=== PATIENT | female | born 1965 | race Hispanic/Latino ===

== ENCOUNTER 2016-11-22 15:46 | Emergency (ER) | payer SELFPAY ==
[~2016-11-22 15:46] MED LIST: Iopamidol 370 76% 100 ML VIAL ONE
[2016-11-22] MEDS ORDERED: Sodium Chloride 0.9% 1,000 ML ONE ×2 (15:59→16:49)
[2016-11-22] MEDS ORDERED: Ondansetron HCl/PF 4 MG/2 ML Vial ONE ×2 (15:59→16:19)
[2016-11-22 16:11] LABS: #Basophils 0.1 thou/uL (0.0-0.2); #Eosinphils 0.3 thou/uL (0.0-0.7); #Lymphocytes 4.3 thou/uL (1.20-3.40); #Monocytes 0.5 thou/uL (0.11-0.59); #Neutrophils 4.5 thou/uL (1.40-6.50); %Eosinophils 2.6 % (0.0-10.0); %Lymphocytes 44.8 % (21.0-51.0); %Monocytes 4.8 % (0.0-10.0); %Neutrophils 46.7 % (42.0-75.0); Hemoglobin 11.5 g/dL (12.0-16.0); Mean Corpuscular HGB CONC 32.5 g/dL (32.0-36.0); Mean Corpuscular Hemoglobin 29.6 pg (27.0-31.0); Mean Platelet Volume 7.8 fL (7.4-10.4); Platelet Count 221 thou/uL (130-400); Red Blood Cell (RBC) Count 3.89 mill/uL (4.20-5.40); White Blood Cell (WBC) Count 9.7 thou/uL (4.8-10.8)
[2016-11-22 16:28] LABS: ALT (SGPT) 23 U/L (8-55); AST (SGOT) 22 U/L (5-34); Albumin 4.1 g/dL (3.5-5.0); Alkaline Phosphatase 83 U/L (40-150); Anion Gap 15 mmol/L (10-20); BUN (Urea Nitrogen) 19 mg/dL (9.8-20.1); Bilirubin, Total 0.2 mg/dL (0.2-1.2); CK (CPK) 145 U/L (29-168); Calc. Creatinine Clearance 0 mL/min (70-130); Calcium 8.9 mg/dL (7.8-10.44); Carbon Dioxide 21 mmol/L (22-29); Chloride 108 mmol/L (98-107); Estimated GFR-MDRD 85; Globulin 2.8 g/dL (2.4-3.5); Glucose 170 mg/dL (70-105); Lipase 18 U/L (8-78); Protein, Total 6.9 g/dL (6.0-8.3); Sodium 140 mmol/L (136-145)
[2016-11-22 16:32] LABS: CKMB 2.1 ng/mL (0-6.6); Troponin I Less than 0.010 ng/mL (< 0.028)
[2016-11-22] MEDS ORDERED: Lorazepam 2 MG/ML VIAL ONE (16:48)
--- NOTE | 2016-11-22 18:24 | RAD ---
SEMIUPRIGHT PORTABLE CHEST ONE VIEW: 11/22/16 HISTORY: 50-year-old female with left upper quadrant pain since this morning. Heart size is within normal limits considering the lordotic positioning of the patient. Mild vascula r congestion. No confluent pneumonia, overt edema or pleural effusion. Patient has large body habitu s. IMPRESSION: No acute intrathoracic disease. POS: [facility]
--- NOTE | 2016-11-22 18:39 | CT ---
ABDOMEN AND PELVIC CT SCAN WITH IV CONTRAST: 11/22/16 HISTORY: 50-year-old female with left upper quadrant pain status post appendectomy. The lung bases are clear. Old granuloma calcification in the right lower lobe. The liver and a an l gallbladder are demonstrated. The pancreas and spleen and adrenal glands are unremarkable. Bilater al nonobstructing renal calculi. There is prominent distention of the stomach with fluid or fluid. There is minimal dilatation of the proximal small bowel, in particular the jejunum with some minimal wall thickening, nonspecific but raising concern for the possibility of some type of gastroenteriti s. The uterus and adnexal regions are unremarkable. No abscess, adenopathy or abnormal fluid collect ion. IMPRESSION: Fairly marked fluid and/or food distention of the stomach with some dilatation of the proximal small bowel and minimal proximal small bowel wall thickening, nonspecific, but raising the possibility of some type of gastroenteritis. Nonobstructing bilateral renal calculi. There is a normal gallbladder present. Status post appendectomy. POS: [facility]
== END 2016-11-22 18:00 | disposition home or self-care (01) ==
LOC: NAV ERS 15:46
DX: R10.13 Epigastric pain (principal)
CPT/HCPCS: 71010; 74177; 80053; 82550; 82553; 83605; 83690; 84484; 85025; 93005; 96361; 96374; 96375; 96376; J2060; J2270; J2405; J7050

== ENCOUNTER 2017-05-22 02:29 | Emergency (ER) | payer SELFPAY ==
[2017-05-22 02:55] LABS: Bilirubin Negative (Negative); Blood, Urine Small (Negative); Clarity Clear (Clear); Glucose, Urine (Dipstick) Negative (Negative); Leukocyte Small (Negative); Nitrite Negative (Negative); Protein, Urine (Dipstick) Negative (Neg-Trace); Urobilinogen 0.2 mg/dL (0.2-1.0)
[2017-05-22 02:57] LABS: Bacteria/HPF 1+ HPF (None Seen)
[2017-05-22] MEDS ORDERED: Ketorolac Tromethamine 30 MG/ML VIAL ONE (02:59)
[2017-05-22] MEDS ORDERED: Ondansetron HCl/PF 4 MG/2 ML Vial ONE (03:00)
[2017-05-22] MEDS ORDERED: Promethazine HCl 25 MG/ML VIAL ONE (03:19)
[2017-05-22 03:36] LABS: CKMB 1.1 ng/mL (0-6.6); Eosinophils 4 % (0-10); Hemoglobin 12.4 g/dL (12.0-16.0); Lymphocytes 61 % (21-51); MDiff Complete? YES; Mean Corpuscular HGB CONC 33.5 g/dL (32.0-36.0); Mean Corpuscular Hemoglobin 30.2 pg (27.0-31.0); Mean Platelet Volume 7.7 fL (7.4-10.4); Monocytes 5 % (0-10); Neutrophil 29 % (42-75); PLT Morphology Comment Appears Adequate; Platelet Count 228 thou/uL (130-400); RBC Distribution Width 12.3 % (11.5-14.5); RBC Morphology Normal; Red Blood Cell (RBC) Count 4.11 mill/uL (4.20-5.40); Troponin I Less than 0.010 ng/mL (< 0.028); White Blood Cell (WBC) Count 7.8 thou/uL (4.8-10.8)
[2017-05-22 03:37] LABS: ALT (SGPT) 22 U/L (8-55); AST (SGOT) 17 U/L (5-34); Albumin 3.9 g/dL (3.5-5.0); Alkaline Phosphatase 72 U/L (40-150); Anion Gap 12 mmol/L (10-20); BUN (Urea Nitrogen) 27 mg/dL (9.8-20.1); Bilirubin, Total 0.2 mg/dL (0.2-1.2); Calc. Creatinine Clearance 0 mL/min (70-130); Carbon Dioxide 22 mmol/L (22-29); Chloride 110 mmol/L (98-107); Estimated GFR-MDRD Greater than 90; Globulin 2.7 g/dL (2.4-3.5); Glucose 116 mg/dL (70-105); Potassium 4.1 mmol/L (3.5-5.1); Protein, Total 6.6 g/dL (6.0-8.3); Sodium 140 mmol/L (136-145)
[2017-05-22] MEDS ORDERED: Fentanyl 100 MCG/2 ML VIAL ONE (04:22)
--- NOTE | 2017-05-22 09:43 | CT ---
PRELIMINARY REPORT/[facility]/EMERGENTY AFTER-HOURS PROCEDURE EXAM: CT Abdomen and Pelvis Without Intravenous Contrast CLINICAL HISTORY: 51 years old, female; Pain and signs and symptoms; Nausea; Abdominal pain; Flank; Left; Prior surgery ; Surgery date: 6+ months; Surgery type: Surgical history of appendectomy & cholecystectomy; Patient HX: 51 year old female presents with acute onset of pain in left flank that awoke her from sleep. She reports nausea, difficulty breathing due to the pain. She denies recent urinary symptoms. TECHNIQUE: Axial computed tomography images of the abdomen and pelvis without intravenous contrast. All CT scans at this facility use one or more dose reduction techniques, viz.: automated exposure control; ma/kV adjustment per patient size (including targeted exams where dose is matched to indication; i.e. head) ; or iterative reconstruction technique. Coronal and sagittal reformatted images were created and rev iewed. COMPARISON: No relevant prior studies available. FINDINGS: Lung bases: Unremarkable. No mass. No consolidation. ABDOMEN: Liver: Unremarkable. Gallbladder and bile ducts: Unremarkable. No calcified stones. No ductal dilation. Pancreas: Unremarkable. No ductal dilation. Spleen: Unremarkable. No splenomegaly. Adrenals: Unremarkable. No mass. Kidneys and ureters: Bilateral nephrolithiasis measuring up to 4 mm. Question minimal fullness to the renal pelves/ureters Faint left UVJ calculus on image 80 versus phlebolith Stomach and bowel: Colonic diverticulosis noted No obstruction. No mucosal thickening. Appendix: Prior appendectomy PELVIS: Bladder: Phlebolith adjacent to the urinary bladder Reproductive: Calcifications in the adnexa ABDOMEN and PELVIS: Intraperitoneal space: Unremarkable. No free air. No significant fluid collection. Bones/joints: No acute fracture. No dislocation. Soft tissues: Unremarkable. Vasculature: Unremarkable. No abdominal aortic aneurysm. Lymph nodes: Unremarkable. No enlarged lymph nodes. IMPRESSION: Bilateral renal calculi and minimal fullness to the renal collecting system/ureters. Questioned faint left UVJ calculus versus phlebolith Colonic diverticulosis without diverticulitis Thank you for allowing us to participate in the care of your patient. Dictated and Authenticated by: Geovanny Davies MD 05/22/2017 5:13 AM Central Time ([place] & [place]) FINAL REPORT CT ABDOMEN AND PELVIS WITHOUT CONTRAST: History: Left flank pain. Comparison: CT 11-22-16 FINDINGS: Findings and impression are concurrent with the preliminary report. Code QA. Multiple phleboliths in the pelvis. No definite ureteral calculi. No calculi within urinary bladder.
== END 2017-05-22 05:45 | disposition home or self-care (01) ==
LOC: NAV ERS 02:29
DX: N20.1 Calculus of ureter (principal); N39.0 Urinary tract infection, site not specified
CPT/HCPCS: 36415; 74176; 80053; 81003; 81015; 82553; 84484; 85025; 85379; 93005; 96365; 96375; J1885; J2405; J2550; J3010

== ENCOUNTER 2017-05-22 19:19 | Emergency (ER) | payer SELFPAY ==
[2017-05-22] MEDS ORDERED: Promethazine HCl 25 MG/ML VIAL ONE (19:51)
[2017-05-22] MEDS ORDERED: Sodium Chloride 0.9% 1,000 ML ONE ×2 (19:51→20:40)
[2017-05-22] MEDS ORDERED: Tamsulosin HCl 0.4 MG CAP ONE (19:51)
[2017-05-22] MEDS ORDERED: Ketorolac Tromethamine 30 MG/ML VIAL ONE (19:51)
[2017-05-22 20:05] LABS: #Basophils 0.1 thou/uL (0.0-0.2); #Eosinphils 0.3 thou/uL (0.0-0.7); #Lymphocytes 4.5 thou/uL (1.20-3.40); #Monocytes 0.6 thou/uL (0.11-0.59); #Neutrophils 2.7 thou/uL (1.40-6.50); %Basophils 1.2 % (0.0-1.0); %Eosinophils 4.2 % (0.0-10.0); %Lymphocytes 55.2 % (21.0-51.0); %Neutrophils 32.5 % (42.0-75.0); Mean Corpuscular HGB CONC 33.3 g/dL (32.0-36.0); Mean Corpuscular Hemoglobin 30.3 pg (27.0-31.0); Platelet Count 219 thou/uL (130-400); RBC Distribution Width 12.7 % (11.5-14.5); Red Blood Cell (RBC) Count 3.95 mill/uL (4.20-5.40); White Blood Cell (WBC) Count 8.2 thou/uL (4.8-10.8)
[2017-05-22 20:17] LABS: ALT (SGPT) 22 U/L (8-55); AST (SGOT) 19 U/L (5-34); Albumin 3.9 g/dL (3.5-5.0); Alkaline Phosphatase 80 U/L (40-150); Anion Gap 14 mmol/L (10-20); BUN (Urea Nitrogen) 27 mg/dL (9.8-20.1); Bilirubin, Total 0.1 mg/dL (0.2-1.2); Calc. Creatinine Clearance 0 mL/min (70-130); Calcium 9.3 mg/dL (7.8-10.44); Carbon Dioxide 23 mmol/L (22-29); Chloride 109 mmol/L (98-107); Estimated GFR-MDRD 85; Globulin 2.7 g/dL (2.4-3.5); Glucose 127 mg/dL (70-105); Protein, Total 6.6 g/dL (6.0-8.3); Sodium 142 mmol/L (136-145)
[2017-05-22] MEDS ORDERED: Morphine 4 MG/ML Carpuject ONE (20:26)
[2017-05-22] MEDS ORDERED: methylPREDNISolone Sod Succ/PF 125 MG/2 ML VIAL ONE (21:49)
== END 2017-05-22 22:34 | disposition home or self-care (01) ==
LOC: NAV ERS 19:19
DX: N20.0 Calculus of kidney (principal); Z79.899 Other long term (current) drug therapy; Z79.891 Long term (current) use of opiate analgesic
CPT/HCPCS: 94640; 96361; 96372; 96374; 96375; J1885; J2270; J2550; J2930; J7050; J7620

== ENCOUNTER 2018-08-21 08:54 | Emergency (ER) | payer SELFPAY ==
[2018-08-21] MEDS ORDERED: Ondansetron PF 4 MG/2 ML Vial ONE (09:30)
[2018-08-21] MEDS ORDERED: Ketorolac Tromethamine 30 MG/ML VIAL ONE (09:31)
[2018-08-21] MEDS ORDERED: Sodium Chloride 0.9% 1,000 ML ONE (09:31)
[2018-08-21 09:42] LABS: #Basophils 0.1 thou/uL (0.0-0.2); #Eosinphils 0.1 thou/uL (0.0-0.7); #Monocytes 0.3 thou/uL (0.11-0.59); #Neutrophils 2.4 thou/uL (1.40-6.50); %Basophils 0.9 % (0.0-1.0); %Eosinophils 1.9 % (0.0-10.0); %Lymphocytes 50.5 % (21.0-51.0); %Monocytes 5.8 % (0.0-10.0); %Neutrophils 40.9 % (42.0-75.0); Hemoglobin 13.2 g/dL (12.0-16.0); Mean Corpuscular HGB CONC 32.1 g/dL (32.0-36.0); Mean Corpuscular Hemoglobin 29.6 pg (27.0-31.0); Mean Corpuscular Volume 92.1 fL (78.0-98.0); Mean Platelet Volume 7.4 fL (7.4-10.4); Platelet Count 227 thou/uL (130-400); RBC Distribution Width 12.4 % (11.5-14.5); Red Blood Cell (RBC) Count 4.45 mill/uL (4.20-5.40)
[2018-08-21 09:54] LABS: ALT (SGPT) 29 U/L (8-55); AST (SGOT) 27 U/L (5-34); Albumin 4.4 g/dL (3.5-5.0); Alkaline Phosphatase 85 U/L (40-150); Anion Gap 13 mmol/L (10-20); BUN (Urea Nitrogen) 15 mg/dL (9.8-20.1); Bilirubin, Total 0.3 mg/dL (0.2-1.2); Calc. Creatinine Clearance 0 mL/min (70-130); Calcium 9.3 mg/dL (7.8-10.44); Carbon Dioxide 24 mmol/L (22-29); Chloride 107 mmol/L (98-107); Estimated GFR-MDRD Greater than 90; Glucose 113 mg/dL (70-105); Lipase 14 U/L (8-78); Potassium 4.1 mmol/L (3.5-5.1); Protein, Total 7.4 g/dL (6.0-8.3); Sodium 140 mmol/L (136-145)
[2018-08-21 10:30] LABS: Bilirubin Negative (Negative); Blood, Urine Negative (Negative); Clarity Clear (Clear); Glucose, Urine (Dipstick) Negative (Negative); Leukocyte Negative (Negative); Nitrite Negative (Negative); Protein, Urine (Dipstick) Negative (Neg-Trace); Urobilinogen 0.2 mg/dL (Less than 2)
[2018-08-21 10:31] LABS: Pregnancy Test - Urine (BHCG) Negative (Negative); Pregu Control Bar Appear? YES (CONTROL BAR)
[2018-08-21 10:32] LABS: Pregu Control Background? CLEAR/WHITE (CLR/WHITE)
== END 2018-08-21 10:47 | disposition home or self-care (01) ==
LOC: NAV ERS 08:54
DX: R11.2 Nausea with vomiting, unspecified (principal); R10.9 Unspecified abdominal pain
CPT/HCPCS: 80053; 81003; 81025; 83605; 83690; 85025; 93005; 96361; 96374; 96375; J1885; J2405; J7050

== ENCOUNTER 2019-06-12 09:27 | Emergency (ER) | payer MEDICARE, OTHER ==
[2019-06-12] MEDS ORDERED: Albuterol Sulfate 2.5 mg/3 ml Neb ONE (10:56)
[2019-06-12] MEDS ORDERED: Ventolin HFA Inhaler 60 PUFF INHALER ONE (10:57)
[2019-06-12] MEDS ORDERED: Sodium Chloride 0.9% 1,000 ML ONE (10:57)
[2019-06-12 11:06] LABS: #Basophils 0.1 thou/uL (0.0-0.2); #Eosinphils 0.2 thou/uL (0.0-0.7); #Lymphocytes 3.4 thou/uL (1.20-3.40); #Monocytes 0.4 thou/uL (0.11-0.59); #Neutrophils 2.9 thou/uL (1.40-6.50); %Basophils 1.5 % (0.0-1.0); %Eosinophils 3.2 % (0.0-10.0); %Lymphocytes 48.3 % (21.0-51.0); Hemoglobin 13.2 g/dL (12.0-16.0); Mean Corpuscular HGB CONC 33.2 g/dL (32.0-36.0); Mean Corpuscular Hemoglobin 30.6 pg (27.0-31.0); Mean Corpuscular Volume 92.1 fL (78.0-98.0); Mean Platelet Volume 8.3 fL (7.4-10.4); Platelet Count 258 thou/uL (130-400); RBC Distribution Width 12.3 % (11.5-14.5)
[2019-06-12 11:20] LABS: ALT (SGPT) 39 U/L (8-55); AST (SGOT) 28 U/L (5-34); Albumin 4.3 g/dL (3.5-5.0); Alkaline Phosphatase 81 U/L (40-110); Anion Gap 14 mmol/L (10-20); BUN (Urea Nitrogen) 17 mg/dL (9.8-20.1); Bilirubin, Total 0.3 mg/dL (0.2-1.2); Calc. Creatinine Clearance 0 mL/min (70-130); Calcium 9.2 mg/dL (7.8-10.44); Carbon Dioxide 21 mmol/L (22-29); Chloride 107 mmol/L (98-107); Estimated GFR-MDRD Greater than 90; Globulin 3.1 g/dL (2.4-3.5); Glucose 105 mg/dL (70-105); Protein, Total 7.4 g/dL (6.0-8.3); Sodium 138 mmol/L (136-145)
--- NOTE | 2019-06-12 11:31 | RAD ---
EXAM: CHEST ONE VIEW HISTORY: Cough, headache, and fatigue. COMPARISON: 11/22/2016 FINDINGS: The cardiac silhouette and pulmonary vasculature is within normal limits. The lungs are clear. The os seous structures are intact. IMPRESSION: 1. No acute cardiopulmonary process. 2. No pulmonary opacities are visualized. Please note that chest radiographs exhibit low sensitivity for subtle groundglass opacities which can be seen in viral infections.
== END 2019-06-12 12:36 | disposition home or self-care (01) ==
LOC: NAV ERS 09:27
DX: J20.8 Acute bronchitis due to other specified organisms (principal); Z20.828 Contact with and (suspected) exposure to other viral communicable diseases; Z87.442 Personal history of urinary calculi
CPT/HCPCS: 71045; 80053; 83605; 83880; 85025; 87040; 87081; 87430; 87635; 87804; 93005; 96360; J7050; J7611; U0002

== ENCOUNTER 2019-07-17 16:57 | Outpatient (CLI) | payer OTHER ==
--- NOTE | 2019-07-17 18:12 | RAD ---
PA AND LATERAL CHEST: 07/17/19 HISTORY: Persistent cough. COVID test negative. COMPARISON: 06/12/19. The heart size is normal. The aorta is tortuous. The lungs are well expanded without lobar consolidat ion, pneumothoraces, or pleural effusions. No acute osseous abnormalities are seen. IMPRESSION: No radiographic evidence of acute cardiopulmonary process. POS: [facility]
== END 2019-07-17 16:58 | disposition home or self-care (01) ==
LOC: NAV RAD 16:57
PROVIDERS: ATTEND Nurse Practitioner Family
DX: R05 Cough (principal)
CPT/HCPCS: 71046

== ENCOUNTER 2019-10-14 16:13 | Emergency (ER) | payer OTHER, SELFPAY ==
[2019-10-14] MEDS ORDERED: Sodium Chloride 0.9% 1,000 ML ONE (16:42)
[2019-10-14 17:00] LABS: #Basophils 0.1 thou/uL (0.0-0.2); #Eosinphils 0.1 thou/uL (0.0-0.7); #Lymphocytes 4.3 thou/uL (1.20-3.40); #Monocytes 0.5 thou/uL (0.11-0.59); #Neutrophils 4.8 thou/uL (1.40-6.50); %Basophils 0.8 % (0.0-1.0); %Lymphocytes 43.9 % (21.0-51.0); %Monocytes 4.6 % (0.0-10.0); %Neutrophils 49.7 % (42.0-75.0); Hemoglobin 12.3 g/dL (12.0-16.0); Mean Corpuscular HGB CONC 31.5 g/dL (32.0-36.0); Mean Platelet Volume 7.8 fL (7.4-10.4); Platelet Count 217 thou/uL (130-400); RBC Distribution Width 12.6 % (11.5-14.5); White Blood Cell (WBC) Count 9.7 thou/uL (4.8-10.8)
[2019-10-14 17:19] LABS: ALT (SGPT) 54 U/L (8-55); AST (SGOT) 34 U/L (5-34); Albumin 4.5 g/dL (3.5-5.0); Alkaline Phosphatase 78 U/L (40-110); Anion Gap 13 mmol/L (10-20); BUN (Urea Nitrogen) 20 mg/dL (9.8-20.1); Bilirubin, Total 0.4 mg/dL (0.2-1.2); CK (CPK) 159 U/L (29-168); Calc. Creatinine Clearance 0 mL/min (70-130); Carbon Dioxide 23 mmol/L (22-29); Chloride 109 mmol/L (98-107); Estimated GFR-MDRD 83; Globulin 2.7 g/dL (2.4-3.5); Glucose 125 mg/dL (70-105); Potassium 3.7 mmol/L (3.5-5.1); Protein, Total 7.2 g/dL (6.0-8.3); Sodium 141 mmol/L (136-145)
[2019-10-14] MEDS ORDERED: Ketorolac Tromethamine 30 MG/ML VIAL ONE (17:32)
[2019-10-15 12:30] LABS: SARS-CoV-2 MS2 Positive; SARS-CoV-2 N Gene Negative; SARS-CoV-2 S Gene Negative; SARS-CoV-2 by NAA Not Detected (NotDetected); SARS-CoV-2 orf1ab Negative
== END 2019-10-14 17:55 | disposition home or self-care (01) ==
LOC: NAV ERS 16:13
DX: M79.10 Myalgia, unspecified site (principal); J45.909 Unspecified asthma, uncomplicated
CPT/HCPCS: 80053; 82550; 85025; 87635; 96361; 96374; J1885; J7050; U0003

== ENCOUNTER 2019-11-06 18:56 | Emergency (ER) | payer SELFPAY ==
[2019-11-06 20:23] LABS: #Basophils 0.1 thou/uL (0.0-0.2); #Eosinphils 0.2 thou/uL (0.0-0.7); #Monocytes 0.4 thou/uL (0.11-0.59); #Neutrophils 5.4 thou/uL (1.40-6.50); %Basophils 1.2 % (0.0-1.0); %Eosinophils 1.5 % (0.0-10.0); %Lymphocytes 45.2 % (21.0-51.0); %Monocytes 3.7 % (0.0-10.0); %Neutrophils 48.4 % (42.0-75.0); Hemoglobin 12.5 g/dL (12.0-16.0); Mean Corpuscular HGB CONC 31.5 g/dL (32.0-36.0); Mean Corpuscular Volume 95.2 fL (78.0-98.0); Mean Platelet Volume 8.7 fL (7.4-10.4); Platelet Count 240 thou/uL (130-400); RBC Distribution Width 12.8 % (11.5-14.5); Red Blood Cell (RBC) Count 4.17 mill/uL (4.20-5.40); White Blood Cell (WBC) Count 11.1 thou/uL (4.8-10.8)
[2019-11-06] MEDS ORDERED: Sodium Chloride 0.9% 1,000 ML ONE (20:31)
[2019-11-06] MEDS ORDERED: Pantoprazole 40 MG VIAL ONE (20:32)
[2019-11-06] MEDS ORDERED: Ondansetron PF 4 MG/2 ML Vial ONE (20:32)
--- NOTE | 2019-11-06 20:42 | RAD ---
Frontal radiograph chest: 11/06/2019 COMPARISON: 06/12/2019 HISTORY: Nausea/vomiting with abdominal pain FINDINGS: No pneumothorax or pleural fluid. No focal consolidation or alveolar edema. Heart and media stinal contours are grossly. IMPRESSION: No acute findings.
[2019-11-06 20:45] LABS: ALT (SGPT) 55 U/L (8-55); AST (SGOT) 36 U/L (5-34); Albumin 4.5 g/dL (3.5-5.0); Alkaline Phosphatase 93 U/L (40-110); Anion Gap 16 mmol/L (10-20); BUN (Urea Nitrogen) 24 mg/dL (9.8-20.1); Bilirubin, Total 0.2 mg/dL (0.2-1.2); Calc. Creatinine Clearance 0 mL/min (70-130); Calcium 9.4 mg/dL (7.8-10.44); Carbon Dioxide 25 mmol/L (22-29); Chloride 102 mmol/L (98-107); Estimated GFR-MDRD 61; Globulin 2.7 g/dL (2.4-3.5); Glucose 118 mg/dL (70-105); Lipase 20 U/L (8-78); Potassium 3.9 mmol/L (3.5-5.1); Protein, Total 7.2 g/dL (6.0-8.3); Sodium 139 mmol/L (136-145)
--- NOTE | 2019-11-06 20:46 | CT ---
CT of abdomen and pelvis: 11/06/2019 COMPARISON: 11/03/2015 HISTORY: Nausea, vomiting, and abdominal pain TECHNIQUE: Axial CT imaging at 5 mm intervals from lung bases through pubic symphysis without contras t. Coronal reformatted imaging obtained. FINDINGS: Lack of contrast media limits assessment of the viscera, bowel, vascular structures, and fo r lymphadenopathy. The visualized lung bases are unremarkable. No free intraperitoneal air or fluid. The hepatic parench yma is diffusely hypodense, evidence of hepatic steatosis. The spleen, gallbladder, and pancreas demonstrate a normal noncontrast enhanced appearance. The adrenal glands are unremarkable. There are 2 punctate nonobstructing left renal calculi are noted. Two nonobstructing calculi are noted within the right kidney, measuring up to approximately 5 mm in the upper pole region. There is no evidence f or obstructive uropathy on either side. Limited evaluation of the bowel demonstrates no evidence for inflammatory change or obstruction. Review of the osseous structures demonstrates no acute findings. IMPRESSION: Small bilateral renal calculi. No evidence for obstructive uropathy on either side..
[2019-11-06] MEDS ORDERED: Mag-Al Plus 1200 MG/1200 MG/120 MG/30 ML UDCUP ONE (21:14)
[2019-11-06] MEDS ORDERED: Lidocaine Viscous Sol 2% 15 ml UD Cup ONE (21:14)
[2019-11-06 21:18] LABS: Bilirubin Negative (Negative); Blood, Urine Trace (Negative); Clarity Clear (Clear); Glucose, Urine (Dipstick) Negative (Negative); Ketone, Urine Negative (Negative); Leukocyte Negative (Negative); Nitrite Negative (Negative); Protein, Urine (Dipstick) Negative (Neg-Trace); Specific Gravity, Urine 1.015 (1.005-1.030); Urobilinogen 0.2 mg/dL (Less than 2)
[2019-11-06 21:24] LABS: Bacteria/HPF None Seen HPF (None Seen); RBC/HPF 0-3 HPF (0-3); Squamous Epithelial None Seen HPF (0-3); WBC/HPF None Seen HPF (0-3)
[2019-11-06] MEDS ORDERED: diphenhydrAMINE 50 MG/ML VIAL ONE (22:39)
[2019-11-06] MEDS ORDERED: Metoclopramide HCl 10 MG/2 ML VIAL ONE (22:39)
[2019-11-06 23:43] LABS: Troponin I Less than 0.010 ng/mL (< 0.028)
== END 2019-11-07 00:08 | disposition home or self-care (01) ==
LOC: NAV ERS 18:56
DX: K29.00 Acute gastritis without bleeding (principal); K21.9 Gastro-esophageal reflux disease without esophagitis; J45.909 Unspecified asthma, uncomplicated; Z79.899 Other long term (current) drug therapy
CPT/HCPCS: 71045; 74176; 80053; 81003; 81015; 83605; 83690; 84484; 85025; 85379; 93005; 96361; 96374; 96375; C9113; J1200; J2405; J2765; J7050

== ENCOUNTER 2021-07-07 09:13 | Emergency (ER) | payer BC, SELFPAY ==
[2021-07-07] MEDS ORDERED: Sodium Chloride 0.9% 1,000 ML ONE (09:45)
[2021-07-07] MEDS ORDERED: Ketorolac Tromethamine 30 MG/ML VIAL ONE (09:45)
[2021-07-07] MEDS ORDERED: Ondansetron PF 4 MG/2 ML Vial ONE (09:45)
[2021-07-07 09:50] LABS: #Basophils 0.1 thou/uL (0.0-0.2); #Eosinphils 0.1 thou/uL (0.0-0.7); #Lymphocytes 2.6 thou/uL (1.20-3.40); #Monocytes 0.4 thou/uL (0.11-0.59); #Neutrophils 6.3 thou/uL (1.40-6.50); %Basophils 1.1 % (0.0-1.0); %Eosinophils 1.3 % (0.0-10.0); %Lymphocytes 27.2 % (21.0-51.0); %Neutrophils 66.5 % (42.0-75.0); Hemoglobin 12.7 g/dL (12.0-16.0); Mean Corpuscular HGB CONC 30.4 g/dL (32.0-36.0); Mean Corpuscular Hemoglobin 29.9 pg (27.0-31.0); Mean Corpuscular Volume 98.2 fL (78.0-98.0); Mean Platelet Volume 7.9 fL (7.4-10.4); Platelet Count 244 thou/uL (130-400); Red Blood Cell (RBC) Count 4.24 mill/uL (4.20-5.40); White Blood Cell (WBC) Count 9.4 thou/uL (4.8-10.8)
[2021-07-07 10:04] LABS: ALT (SGPT) 27 U/L (8-55); AST (SGOT) 19 U/L (5-34); Alkaline Phosphatase 63 U/L (40-110); Anion Gap 17 mmol/L (10-20); BUN (Urea Nitrogen) 14 mg/dL (9.8-20.1); Bilirubin, Total 0.4 mg/dL (0.2-1.2); Calc. Creatinine Clearance 0 mL/min (70-130); Calcium 9.2 mg/dL (7.8-10.44); Carbon Dioxide 27 mmol/L (22-29); Chloride 102 mmol/L (98-107); Globulin 2.8 g/dL (2.4-3.5); Glucose 103 mg/dL (70-105); Potassium 4.5 mmol/L (3.5-5.1); Protein, Total 6.8 g/dL (6.0-8.3); Sodium 141 mmol/L (136-145)
[2021-07-07 10:10] LABS: Clarity Clear (Clear); Glucose, Urine (Dipstick) Negative (Negative); Leukocyte Negative (Negative); Nitrite Negative (Negative); Protein, Urine (Dipstick) Negative (Neg-Trace); pH, Urine 8.5 (5.0-9.0)
[2021-07-07 10:11] LABS: Bilirubin Negative (Negative); Blood, Urine Negative (Negative); Ketone, Urine Negative (Negative); Urobilinogen 0.2 mg/dL (Less than 2)
[2021-07-07] MEDS ORDERED: Acetaminophen 500 MG TAB ONE (11:27)
== END 2021-07-07 12:03 | disposition home or self-care (01) ==
LOC: NAV ERS 09:13
DX: J01.90 Acute sinusitis, unspecified (principal); R10.32 Left lower quadrant pain
CPT/HCPCS: 74176; 80053; 81003; 85025; 87086; 96361; 96374; 96375; J1885; J2405; J7050

== ENCOUNTER 2022-02-16 09:09 | Emergency (ER) | payer SELFPAY ==
[2022-02-16] MEDS ORDERED: Sodium Chloride 0.9% 1,000 ML ONE (09:55)
[2022-02-16] MEDS ORDERED: Lorazepam 2 MG/ML VIAL ONE (09:55)
[2022-02-16] MEDS ORDERED: Ketorolac Tromethamine 60 MG/2 ML VIAL ONE (09:55)
[2022-02-16] MEDS ORDERED: Ketorolac Tromethamine 30 MG/ML VIAL ONE (09:57)
[2022-02-16 10:11] LABS: ALT (SGPT) 35 U/L (8-55); AST (SGOT) 21 U/L (5-34); Albumin 3.9 g/dL (3.5-5.0); Alkaline Phosphatase 83 U/L (40-110); Anion Gap 14 mmol/L (10-20); BUN (Urea Nitrogen) 15 mg/dL (9.8-20.1); Bilirubin, Total 0.3 mg/dL (0.2-1.2); CK (CPK) 61 U/L (29-168); Calc. Creatinine Clearance 0 mL/min (70-130); Calcium 8.9 mg/dL (7.8-10.44); Carbon Dioxide 24 mmol/L (22-29); Chloride 106 mmol/L (98-107); Estimated GFR 102; Globulin 2.9 g/dL (2.4-3.5); Glucose 138 mg/dL (70-105); Potassium 3.9 mmol/L (3.5-5.1); Protein, Total 6.8 g/dL (6.0-8.3); Sodium 140 mmol/L (136-145)
[2022-02-16 10:36] LABS: Hemoglobin 12.9 g/dL (12.0-16.0); Mean Corpuscular Volume 95.2 fl (78.0-98.0); White Blood Cell (WBC) Count 6.9 10x3/uL (4.8-10.8)
[2022-02-16 10:37] LABS: Eosinophils 2 % (0-10); Lymphocytes 48 % (21-51); MDiff Complete? YES; Manual Diff?? YES; Mean Corpuscular HGB CONC 32.3 g/dL (32.0-36.0); Mean Corpuscular Hemoglobin 30.8 pg (27.0-31.0); Mean Platelet Volume 7.5 fL (7.4-10.4); Monocytes 6 % (0-10); Neutrophil 44 % (42-75); Platelet Count 223 10x3/uL (130-400); Platelet Morphology Comment Appears Adequate; RBC Distribution Width 12.3 % (11.5-14.5)
[2022-02-16 10:38] LABS: RBC Morphology Normal
[2022-02-16] MEDS ORDERED: Ondansetron PF 4 MG/2 ML Vial ONE (10:53)
[2022-02-16] MEDS ORDERED: Morphine 2 MG/ML VIAL ONE ×2 (10:53→12:04)
[2022-02-16] MEDS ORDERED: Gabapentin 300 MG CAP ONE (10:57)
[2022-02-16 11:51] LABS: Bilirubin Negative (Negative); Blood, Urine Negative (Negative); Clarity Clear (Clear); Glucose, Urine (Dipstick) Negative (Negative); Ketone, Urine Negative (Negative); Leukocyte Negative (Negative); Nitrite Negative (Negative); Protein, Urine (Dipstick) Negative (Neg-Trace); Urobilinogen 0.2 mg/dL (Less than 2)
== END 2022-02-16 12:53 | disposition home or self-care (01) ==
LOC: NAV ERS 09:09
DX: G62.9 Polyneuropathy, unspecified (principal); M79.10 Myalgia, unspecified site; R53.1 Weakness; Z87.442 Personal history of urinary calculi
CPT/HCPCS: 70450; 72125; 80053; 81003; 82550; 84443; 84484; 85025; 86140; 93005; 96374; 96375; 96376; J1885; J2060; J2270; J2405; J7050

== ENCOUNTER 2022-04-12 09:03 | Emergency (ER) | payer OTHER, SELFPAY ==
[2022-04-12] MEDS ORDERED: Morphine 4 MG/ML VIAL ONE (09:26)
[2022-04-12] MEDS ORDERED: Ondansetron PF 4 MG/2 ML Vial ONE (09:26)
[2022-04-12 10:06] LABS: #Basophils 0.1 thou/uL (0.0-0.2); #Eosinphils 0.2 thou/uL (0.0-0.7); #Lymphocytes 2.5 thou/uL (1.20-3.40); #Monocytes 0.7 thou/uL (0.11-0.59); #Neutrophils 4.4 thou/uL (1.40-6.50); %Eosinophils 2.1 % (0.0-10.0); %Lymphocytes 31.5 % (21.0-51.0); %Monocytes 8.8 % (0.0-10.0); %Neutrophils 56.6 % (42.0-75.0); Hemoglobin 13.1 g/dL (12.0-16.0); Mean Corpuscular HGB CONC 31.8 g/dL (32.0-36.0); Mean Corpuscular Hemoglobin 30.1 pg (27.0-31.0); Mean Corpuscular Volume 94.7 fl (78.0-98.0); Mean Platelet Volume 7.6 fL (7.4-10.4); Platelet Count 224 10x3/uL (130-400); RBC Distribution Width 12.6 % (11.5-14.5); Red Blood Cell (RBC) Count 4.37 mill/uL (4.20-5.40); White Blood Cell (WBC) Count 7.9 10x3/uL (4.8-10.8)
[2022-04-12 10:13] LABS: Lactic Acid 0.8 mmol/L (0.5-2.2)
[2022-04-12 10:15] LABS: Prothrombin Time 14.1 sec (12.0-14.7)
[2022-04-12 10:18] LABS: ALT (SGPT) 55 U/L (8-55); AST (SGOT) 36 U/L (5-34); Albumin 4.1 g/dL (3.5-5.0); Alkaline Phosphatase 79 U/L (40-110); Anion Gap 13 mmol/L (10-20); BUN (Urea Nitrogen) 21 mg/dL (9.8-20.1); Bilirubin, Total 0.3 mg/dL (0.2-1.2); Calc. Creatinine Clearance 0 mL/min (70-130); Calcium 8.7 mg/dL (7.8-10.44); Carbon Dioxide 23 mmol/L (22-29); Chloride 109 mmol/L (98-107); Estimated GFR 103; Globulin 2.4 g/dL (2.4-3.5); Glucose 103 mg/dL (70-105); Lipase 17 U/L (8-78); Potassium 3.8 mmol/L (3.5-5.1); Protein, Total 6.5 g/dL (6.0-8.3); Sodium 141 mmol/L (136-145)
[2022-04-12 10:32] LABS: Bilirubin Negative (Negative); Blood, Urine Trace (Negative); Clarity Clear (Clear); Glucose, Urine (Dipstick) Negative (Negative); Ketone, Urine Negative (Negative); Leukocyte Negative (Negative); Nitrite Negative (Negative); Protein, Urine (Dipstick) Negative (Neg-Trace); Specific Gravity, Urine 1.015 (1.005-1.030); Urobilinogen 0.2 mg/dL (Less than 2); pH, Urine 8.5 (5.0-9.0)
[2022-04-12 11:00] LABS: Bacteria/HPF None Seen HPF (None Seen); RBC/HPF 0-3 HPF (0-3); Squamous Epithelial 0-3 HPF (0-3); WBC/HPF None Seen HPF (0-3)
[2022-04-12] MEDS ORDERED: Lidocaine Viscous Sol 2% 15 ml UD Cup ONE (11:04)
[2022-04-12] MEDS ORDERED: Mag-Al Plus 1200 MG/1200 MG/120 MG/30 ML UDCUP ONE (11:04)
[2022-04-12] MEDS ORDERED: Aspirin Chewable 81 MG TAB ONE (11:31)
[2022-04-12] MEDS ORDERED: Ketorolac Tromethamine 30 MG/ML VIAL ONE (11:54)
[2022-04-12] MEDS ORDERED: Dexamethasone 4 mg/ml Vial ONE ×2 (11:54)
[2022-04-12 12:19] LABS: SARS-CoV-2 NAA Rapid Test Not Detected (NotDetected)
== END 2022-04-12 12:50 | disposition home or self-care (01) ==
LOC: NAV ERS 09:03
DX: J40 Bronchitis, not specified as acute or chronic (principal); G62.9 Polyneuropathy, unspecified; R10.13 Epigastric pain; Z20.822 Contact with and (suspected) exposure to COVID-19
CPT/HCPCS: 36415; 70450; 71046; 74177; 80053; 81003; 81015; 83605; 83690; 83880; 84484; 85025; 85610; 87040; 87081; 87430; 87804; 96374; 96375; J1100; J1885; J2270; J2405; Q9967; U0002

== ENCOUNTER 2023-02-19 09:05 | Emergency (ER) | payer OTHER ==
[2023-02-19] MEDS ORDERED: Morphine 2 MG/ML VIAL ONE ×2 (09:34→10:49)
[2023-02-19] MEDS ORDERED: Ondansetron PF 4 MG/2 ML Vial ONE (09:34)
[2023-02-19 09:52] LABS: #Basophils 0.1 thou/uL (0.0-0.2); #Eosinphils 0.1 thou/uL (0.0-0.7); #Lymphocytes 4.3 thou/uL (1.20-3.40); #Monocytes 0.6 thou/uL (0.11-0.59); #Neutrophils 4.6 thou/uL (1.40-6.50); %Basophils 1.2 % (0.0-1.0); %Eosinophils 1.3 % (0.0-10.0); %Lymphocytes 43.9 % (21.0-51.0); %Neutrophils 47.6 % (42.0-75.0); Hematocrit 39.7 % (36.0-47.0); Hemoglobin 12.5 g/dL (12.0-16.0); Mean Corpuscular HGB CONC 31.4 g/dL (32.0-36.0); Mean Corpuscular Hemoglobin 30.6 pg (27.0-31.0); Mean Corpuscular Volume 97.2 fl (78.0-98.0); Mean Platelet Volume 7.5 fL (7.4-10.4); Platelet Count 218 10x3/uL (130-400); RBC Distribution Width 12.9 % (11.5-14.5); Red Blood Cell (RBC) Count 4.09 mill/uL (4.20-5.40); White Blood Cell (WBC) Count 9.7 10x3/uL (4.8-10.8)
[2023-02-19 09:58] LABS: ALT (SGPT) 26 U/L (8-55); AST (SGOT) 16 U/L (5-34); Albumin 3.8 g/dL (3.5-5.0); Alkaline Phosphatase 95 U/L (40-110); Anion Gap 10 mmol/L (10-20); BUN (Urea Nitrogen) 15 mg/dL (9.8-20.1); Bilirubin, Total 0.4 mg/dL (0.2-1.2); Calc. Creatinine Clearance 0 mL/min (70-130); Calcium 8.4 mg/dL (7.8-10.44); Carbon Dioxide 23 mmol/L (22-29); Chloride 108 mmol/L (98-107); Estimated GFR 102; Globulin 2.8 g/dL (2.4-3.5); Glucose 101 mg/dL (70-105); Protein, Total 6.6 g/dL (6.0-8.3); Sodium 137 mmol/L (136-145)
[2023-02-19] MEDS ORDERED: traMADol HCl 50 MG TAB ONE (10:49)
== END 2023-02-19 11:54 | disposition home or self-care (01) ==
LOC: NAV ERS 09:05
DX: S52.501A Unspecified fracture of the lower end of right radius, initial encounter for closed fracture (principal); S52.611A Displaced fracture of right ulna styloid process, initial encounter for closed fracture; X50.1XXA Overexertion from prolonged static or awkward postures, initial encounter
CPT/HCPCS: 29125; 80053; 85025; 96374; 96375; 96376; J2272; J2405

== ENCOUNTER 2023-12-06 12:10 | Emergency (ER) | payer OTHER, SELFPAY ==
[2023-12-06] MEDS ORDERED: Mag-Al Plus 1200/1200/120 MG (30 mL) UDCUP ONE (12:16)
[2023-12-06] MEDS ORDERED: Lidocaine 2% Viscous 100 ML BOTTLE ONE (12:17)
== END 2023-12-06 13:24 | disposition home or self-care (01) ==
LOC: NAV ERS 12:10
DX: T17.228A Food in pharynx causing other injury, initial encounter (principal)
CPT/HCPCS: 99283